=== PATIENT | female | born 1945 | race Caucasian/White ===

== ENCOUNTER 2022-11-05 05:45 | Day surgery (SDC) | payer MEDICARE ==
[2022-10-30 13:11] LABS: BASOPHILS % (AUTO) 0.8 % (0.0-5.0); EOSINOPHILS % (AUTO) 1.4 % (0.0-8.0); HEMATOCRIT 43.4 % (36-48); MEAN CORPUSCULAR HEMOGLOBIN 29.5 pg (27.0-33.0); MEAN CORPUSCULAR HGB CONC 32.9 g/dL (32.0-36.0); MEAN CORPUSCULAR VOLUME 89.7 fL (79-99); MONOCYTES % (AUTO) 8.3 % (3.0-13.0); NEUTROPHILS % (AUTO) 59.2 % (40.0-77.0); PLATELET COUNT (AUTO) 223 K/uL (130-400); RED BLOOD CELL COUNT(AUTO) 4.84 MIL/uL (4.00-5.50); RED CELL DISTRIBUTION WIDTH 13.8 % (11.0-15.5); WHITE BLOOD COUNT (AUTO) 7.7 K/uL (4.8-10.8)
[2022-10-30 13:25] LABS: CREATININE 2.2 mg/dL (0.5-1.5); POTASSIUM 4.4 mmol/L (3.5-5.1)
[2022-10-30 13:32] VITALS: BP 131/86
[2022-11-05] VITALS (16 sets, daily range): BP systolic 120–143; BP diastolic 38–96
[~2022-11-05] VITALS: Ht 167.6 cm; Wt 131.7 kg
[~2022-11-05 05:45] MED LIST: CETI10CA5 PO; EZET10TA48 PO; FISH1CAP50 PO; FOLATE PO; FURO40TA5 PO; GLUCOSAMINE PO; INSU100C14 SQ; INSU300I SQ; LEVO150C4 PO; LOSA100T59 PO; MAGN400C3 PO; MELA10TA2 PO; NIFE-40 PO; OMEP20TA20 PO; POTA-364 PO; ROSU20TA73 PO; SEMA1PEN3 SQ
[2022-11-05] MEDS ORDERED: 0.9%NACL 1000ML 1,000 ML IV ONE (06:16)
[2022-11-05] MEDS: CEFAZOLIN SODIUM 2 GM VIAL ONE ×2 (06:26→07:31)
[2022-11-05] MEDS ORDERED: LIDOCAINE PF 100MG/5ML (2%) SYRINGE 5ML ONE (06:49)
[2022-11-05] MEDS ORDERED: MIDAZOLAM HCL 1 MG/ML 2ML VIAL ONE (06:50)
[2022-11-05] MEDS ORDERED: FENTANYL CITRATE PF 50 MCG/1 ML 2ML VIAL ONE (06:50)
[2022-11-05] MEDS ORDERED: PROPOFOL 10 MG/ML 20ML VIAL IV ONE (06:50)
[2022-11-05] MEDS ORDERED: ROCURONIUM 10MG/1ML SYR 10 MG/ML ML ONE (06:50)
[2022-11-05] MEDS ORDERED: ONDANSETRON 4MG INJ ONE (07:40)
[2022-11-05] MEDS ORDERED: DEXAMETHASONE SOD PHOSPHATE 10MG/ML 1ML VIAL ONE (07:40)
[2022-11-05] MEDS ORDERED: NEOSTIGMINE 5MG/5ML SYR IV ONE (08:02)
[2022-11-05] MEDS ORDERED: GLYCOPYRROLATE 1 MG/5 ML SYRINGE ONE (08:02)
== END 2022-11-05 10:00 | disposition home or self-care (01) ==
LOC: DAH 05:45
PROVIDERS: ATTEND Orthopaedic Surgery
DX: M65.341 Trigger finger, right ring finger (principal); Z20.822 Contact with and (suspected) exposure to COVID-19; I10 Essential (primary) hypertension; E11.9 Type 2 diabetes mellitus without complications; K21.9 Gastro-esophageal reflux disease without esophagitis; E03.9 Hypothyroidism, unspecified; E66.01 Morbid (severe) obesity due to excess calories; M81.0 Age-related osteoporosis without current pathological fracture; M17.0 Bilateral primary osteoarthritis of knee; Z90.710 Acquired absence of both cervix and uterus; Z90.49 Acquired absence of other specified parts of digestive tract; Z98.890 Other specified postprocedural states; Z88.8 Allergy status to other drugs, medicaments and biological substances; Z86.010 Personal history of colon polyps; Z82.49 Family history of ischemic heart disease and other diseases of the circulatory system; Z83.3 Family history of diabetes mellitus; Z68.42 Body mass index [BMI] 45.0-49.9, adult; Z79.01 Long term (current) use of anticoagulants; Z79.899 Other long term (current) drug therapy
CPT/HCPCS: 80048; 85025; 87426; 36415; 93005; 26055; 82948 ×2; A6260; A4663; J7030 ×2; A4649 ×2; J3010; J3490; J1100; J2710; J2001; J2250; J2704; J2405; J0690; A6223; A4215; A4223; A4222; A4221